=== PATIENT | female | born 1965 | race Two or more races ===

== ENCOUNTER 2018-01-16 20:08 | Emergency (ER) | payer OTHER ==
[2018-01-16 20:20] VITALS: BP 158/79
--- NOTE | 2018-01-16 21:09 | RAD ---
INDICATION: Right flank pain COMPARISON: April 06, 2011 TECHNIQUE: Noncontrast axial source images were acquired from the level hemidiaphragms to the symphysis pubis as part of CT imaging for renal stone. Lung bases: The lung bases are clear. Liver: The liver is enlarged with findings of hepatic steatosis. Noncontrast imaging shows no evidence of a hepatic mass or ductal dilatation. Gallbladder: The gallbladder is contracted and consequently not well evaluated. Spleen: The spleen is normal in size. The noncontrast CT appearance is normal. Pancreas: Noncontrast imaging shows no pancreatic mass or ductal dilitation. Adrenal glands: No masses are identified. Kidneys/Bladder: There is a 3 mm calculus in the minor pelvis in the right along the course the ureter which is likely a ureteral calculus although is very difficult to trace the ureter. Formerly, there was a calcification of similar size in lower pole of the right kidney. There are no other apparent urinary tract calcifications. There is no renal mass on noncontrast imaging The bladder is unremarkable.. Adenopathy: There is no evidence of intraperitoneal or retroperitoneal adenopathy. Evaluation is limited without oral contrast. Fluid collections: There are no free or localized fluid collections. Vessels: The aorta and iliac vessels are normal in caliber. There are no significant atherosclerotic changes. The IVC appears normal Pelvic organs: The uterus and adnexa appear normal GI tract: Evaluation of the bowel is limited without oral contrast. The stomach, small bowel, and lower GI tract appear grossly normal. There are no obstructive findings. The appendix is visualized and appears normal. Soft tissues: There is diastases of the rectus abdominis musculature. Osseous structures: There are no acute osseous findings. IMPRESSION: SUSPECT 3 MM DISTAL RIGHT URETERAL CALCULUS WITHOUT ASSOCIATED OBSTRUCTIVE FINDINGS.
--- NOTE | 2018-01-16 21:20 | UC ---
Abhishek Yanez Julia, scribed for Amish Lew MD on 01/16/18 at 2038 . Abdominal Pain Female HPI - HPI Summary HPI Summary: This patient is a 52 year old M presenting to [facility] [place] with a chief complaint of L flank pain sin 15:30 today. Pain is 6/10 in severity. Pain does not radiate. Patient reports slight nausea. Patient denies vomiting, diarrhea, constipation, fever, and chills. PMHx of kidney stones. - History of Current Complaint Chief Complaint: UCAbdominalPain Stated Complaint: SIDE PAIN Time Seen by Provider: 01/16/18 20:26 Hx Obtained From: Patient Hx Last Menstrual Period: IUD Onset/Duration: Sudden Onset, Lasting Hours Timing: Constant Pain Intensity: 6 Pain Scale Used: 0-10 Numeric Location: Other - L flank Radiates: No Associated Signs and Symptoms: Positive: Nausea. Negative: Vomiting, Diarrhea Allergies/Adverse Reactions: Allergies Allergy/AdvReac Type Severity Reaction Status Date / Time environmental Allergy sinus Uncoded 01/16/18 20:20 congestion PMH/Surg Hx/FS Hx/Imm Hx GI/ History: Kidney Stones Other History Of: Negative For: Anticoagulant Therapy - Surgical History Surgical History: Yes Surgery Procedure, Year, and Place: csxx3. d&c. lithotripsy 2000, [facility] [place]. CYSTO WITH STENT, 06/2012, [facility] [place]. carpal tunnel - Family History Known Family History: Positive: Hypertension - Social History Alcohol Use: Occasionally Substance Use Type: None Smoking Status (MU): Never Smoked Tobacco - Immunization History Most Recent Tetanus Shot: 2010 Review of Systems Constitutional: Negative Gastrointestinal: Negative - vomiting, diarrhea, constipation, Abdominal Pain - L flank pain, Nausea All Other Systems Reviewed And Are Negative: Yes Physical Exam - Summary Physical Exam Summary: VITAL SIGNS: Reviewed. GENERAL: Patient is a well-developed and nourished female who is lying comfortable in the stretcher. Patient is not in any acute respiratory distress. HEAD AND FACE: Normocephalic EYES: PERRLA, EOMI x 2. EARS: Hearing grossly intact. MOUTH: Oropharynx within normal limits. NECK: Supple, trachea is midline, no adenopathy, no JVD, no carotid bruit. CHEST: Symmetric, no tenderness at palpation LUNGS: Clear to auscultation bilaterally. No wheezing or crackles. CVS: Regular rate and rhythm, S1 and S2 present, no murmurs or gallops appreciated. ABDOMEN: Soft,. Bowel sounds are normal. No abdominal abnormal pulsations. L Costovertebral Angle tenderness EXTREMITIES: Full ROM in all major joints, no edema, no cyanosis or clubbing. NEURO: Alert and oriented x 3. No acute neurological deficits. Speech is normal and follows commands. SKIN: Dry and warm Triage Information Reviewed: Yes Vital Signs: Initial Vital Signs Temp 99.4 F 01/16/18 20:14 Pulse 84 01/16/18 20:14 Resp 17 01/16/18 20:14 BP 158/79 01/16/18 20:14 Pulse Ox 100 01/16/18 20:14 Vital Signs Reviewed: Yes Diagnostics - Radiology CT A/P Radiology Interpretation Completed By: Radiologist - SUSPECT 3 MM DISTAL RIGHT URETERAL CALCULUS WITHOUT ASSOCIATED OBSTRUCTIVE FINDINGS. Dr. Lew has reviewed this report. Abd Pain Female Course/Dx - Course Course Of Treatment: The patient presents with left flank pain. Patient reports that she has history of kidney stones. She declined any pain medications. Abdominopelvic CT shows a right 3 mm kidney stone. However the patient's pain is in the area. The urinalysis shows some red blood cells. At this point I discussed the findings and the patient and she reports her pain is improved. Therefore the patient will take ibuprofen at home and if the symptoms worsen she will go to the emergency department. Patient as he remembered the stable alert and oriented 3 - Differential Dx/Diagnosis Provider Diagnoses: Kidney stones. Flank pain Discharge - Sign-Out/Discharge Documenting (check all that apply): Discharge/Admit/Transfer - Discharge Plan Condition: Stable Disposition: HOME Patient Education Materials: Kidney Stones (ED), Flank Pain (ED) Referrals: Kate Lindsey MD [Primary Care Provider] - Additional Instructions: Increase your fluid intake Return to the if symptoms worsen - Billing Disposition and Condition Condition: STABLE Disposition: HOME The documentation as recorded by the Abhishek rhodes Julia accurately reflects the service I personally performed and the decisions made by , Amish Lew MD.
== END 2018-01-16 21:26 | disposition home or self-care (01) ==
LOC: UCEAST 20:08
DX: N20.0 Calculus of kidney (principal); Z87.442 Personal history of urinary calculi; R11.0 Nausea
CPT/HCPCS: 74176; 81003; 99211; G0463

== ENCOUNTER 2018-08-18 19:08 | Emergency (ER) | payer OTHER ==
[2018-08-18 19:33] VITALS: BP 121/61
--- NOTE | 2018-08-18 19:53 | UC ---
Minor Trauma HPI - HPI Summary HPI Summary: 5 DAYS AGO PATIENT SLIPPED ON THE ICE AND FELL BACKWARDS LANDING ON HER BACK. STATES SHE FELT WELL UNTIL 3 DAYS LATER WHEN SHE DEVELOPED INCREASING PAIN IN THE RIGHT POSTERIOR RIB CAGE. PAIN IS WORSE WITH DEEP BREATHS, COUGHING AND WITH AMBULATION. SHE HAS HAD ASSOCIATED NAUSEA AND CHILLS. FEELS LIKE SHE NEEDS TO TAKE VERY SHALLOW BREATHS. SHE DENIES ANY ANTERIOR CHEST PAIN. DENIES ANY RECENT TRAVEL OR UNUSUAL SEDENTARY BEHAVIOR. PATIENT IS OVERWEIGHT AND HAS A POSITIVE FAMILY HISTORY OF BLOOD CLOTS IN HER SISTER AND MATERNAL AUNT. PATIENT DENIES ANY PERSONAL HISTORY OF UNUSUAL CLOTTING. DENIES ANY FEVERS AT HOME HOWEVER WHILE IN THE UC DEVELOPED A TEMPERATURE OF 100.3. - History of Current Complaint Chief Complaint: UCTrauma Stated Complaint: RIB INJURY Time Seen by Provider: 08/18/18 19:41 Hx Obtained From: Patient, Family/Block Trimmer - Hx Last Menstrual Period: IUD Onset/Duration: Sudden Onset, Lasting Days, Still Present Onset Of Pain: Post Accident - 3 DAYS Severity Initially: Mild Severity Currently: Moderate Pain Intensity: 7 Pain Scale Used: 0-10 Numeric Mechanism Of Injury: Fall From A Standing Position Aggravating Factor(s): Ambulation, Coughing, Deep Breaths, Movement Alleviating Factor(s): OTC Meds - IBUPROFEN Associated Signs And Symptoms: Negative: Ecchymosis, Swelling - Allergies/Home Medications Allergies/Adverse Reactions: Allergies Allergy/AdvReac Type Severity Reaction Status Date / Time environmental Allergy sinus Uncoded 08/18/18 19:24 congestion Home Medications: Home Medications Ibuprofen 600 mg PO Q8HR PRN 08/18/18 [History Confirmed 08/18/18] PMH/Surg Hx/FS Hx/Imm Hx - Additional Past Medical History Additional PMH: PSORIATIC ARTHRITIS, TMJ, VIT D DEFICIENCY GI/ History: Kidney Stones Other History Of: Negative For: Anticoagulant Therapy - Surgical History Surgical History: None Surgery Procedure, Year, and Place: c section x 3. carpal tunnel. tubal - Family History Known Family History: Positive: Hypertension, Blood Disorder - SISTER AND MATERNAL AUNT WITH CLOTTING DISORDER - Social History Alcohol Use: Occasionally Substance Use Type: None Smoking Status (MU): Never Smoked Tobacco - Immunization History Most Recent Tetanus Shot: 2010 Review of Systems All Other Systems Reviewed And Are Negative: Yes Constitutional: Positive: Chills Skin: Positive: Negative Respiratory: Positive: Other - BREATHING SHALLOW Cardiovascular: Positive: Negative Gastrointestinal: Positive: Nausea Physical Exam Triage Information Reviewed: Yes Appearance: Well-Nourished, Pain Distress - MODERATE, Obese Vital Signs: Initial Vital Signs Temp 99.2 F 08/18/18 19:25 Pulse 80 08/18/18 19:25 Resp 18 08/18/18 19:25 BP 121/61 08/18/18 19:25 Pulse Ox 100 08/18/18 19:25 Vital Signs Reviewed: Yes Eyes: Positive: Conjunctiva Clear ENT: Positive: Hearing grossly normal Neck: Positive: Supple Respiratory Exam: Normal Cardiovascular Exam: Normal Abdomen Description: Positive: Soft Musculoskeletal: Positive: No Edema, Other: - NOT TENDER OVER RIGHT RIB CAGE. PT CATCHES BREATH AND GRIMACES WHEN ASKED TO ABDUCT RIGHT ARM. Neurological: Positive: Alert Psychological: Positive: Normal Response To Family, Age Appropriate Behavior Skin: Negative: Rashes Minor Trauma Course/Dx - Course Course Of Treatment: PT DEVELOPED WORSENING PAIN AND TEMP 100.3 WHILE IN THE . HAS A FAMILY H/O CLOTTING D/O. PT REQUIRES HIGHER LEVEL OF CARE THAN WHAT WE CAN PROVIDE IN THE . PT OFFERED TRANSPORT TO THE ED BY AMBULANCE BUT DECLINES. ADVISED THAT BY NOT TRAVELING IN A MONITORED SETTING SHE COULD BE RISKING WORSENING OF HER CONDITION THAT COULD POSE A THREAT TO HER LIFE, HEALTH AND MEDICAL SAFETY. SHE VERBALIZES UNDERSTANDING AND CONTINUES TO DECLINE AMBULANCE TRANSFER. - Differential Dx/Diagnosis Provider Diagnosis: Pleuritic pain, Fever chills Discharge - Sign-Out/Discharge Documenting (check all that apply): Patient Departure All imaging exams completed and their final reports reviewed: No Studies - Discharge Plan Condition: Stable Disposition: TRANS [facility] Patient Education Materials: Pleurisy (ED) Referrals: Kate Lindsey MD [Primary Care Provider] - If Needed Additional Instructions: WHILE YOU WERE HERE IN THE YOUR PAIN WORSENED AND YOU DEVELOPED A TEMP OF 100.3. IBUPROFEN 800MG GIVEN. GO DIRECTLY TO THE [facility] [place] ED FROM HERE FOR FURTHER EVALUATION. YOU HAVE DECLINED TRANSFER TO THE ED BY AMBULANCE. BE ADVISED THAT BY NOT TRAVELING IN A MONITORED SETTING YOU COULD BE RISKING WORSENING OF YOUR CONDITION THAT COULD POSE A THREAT TO YOUR LIFE, HEALTH AND MEDICAL SAFETY. - Billing Disposition and Condition Condition: STABLE Disposition: Trans Higher l of Care Fac
[2018-08-18] MEDS ORDERED: Ibuprofen TAB* 400 MG PO ONE (20:02)
== END 2018-08-18 20:10 | disposition short-term general hospital (02) ==
LOC: UCEAST 19:08
DX: R07.81 Pleurodynia (principal); R50.9 Fever, unspecified; Z91.09 Other allergy status, other than to drugs and biological substances; W00.0XXA Fall on same level due to ice and snow, initial encounter; Y92.9 Unspecified place or not applicable
CPT/HCPCS: 99212; A9270-GY; G0463

== ENCOUNTER 2018-08-18 20:26 | Emergency (ER) | payer OTHER ==
--- NOTE | 2018-08-18 21:05 | ED ---
Back Pain - HPI Summary HPI Summary: This patient is a 53 year old F presenting to [facility] upon referral from [facility] care accompanied by her with a chief complaint of back pain since 2 days ago. Patient reports that she fell on ice and hit her back 5 days ago. The patient rates the pain 8/10 in severity. Symptoms aggravated by ambulating and arm movement. Symptoms alleviated by nothing. Patient reports nausea, right side pain, chest tightness, pain in her chills, cough, fatigue, and myalgias. Patient denies bladder incontinence or bowel incontinence. - History of Current Complaint Chief Complaint: EDFever Stated Complaint: FEVER Time Seen by Provider: 08/18/18 20:54 Hx Obtained From: Patient Hx Last Menstrual Period: IUD Onset/Duration: Gradual Onset, Lasting Days - 2 days, Still Present Onset/Duration: Started Days Ago - 2 days, Still Present Timing: Constant Back Pain Location: Radiates To - right side Severity Initially: Moderate Severity Currently: Moderate Pain Intensity: 8 Pain Scale Used: 0-10 Numeric Aggravating Symptom(s): Movement - arm movement, Walking Alleviating Symptom(s): Nothing Associated Signs And Symptoms: Positive: Other - chills, nausea, chest tightness , fatigue, myalgias. Negative: Bladder Incontinence, Bowel Incontinence - Allergies/Home Medications Allergies/Adverse Reactions: Allergies Allergy/AdvReac Type Severity Reaction Status Date / Time environmental Allergy sinus Uncoded 08/18/18 19:24 congestion PMH/Surg Hx/FS Hx/Imm Hx Endocrine/Hematology History: Reports: Hx Diabetes - WITH Denies: Hx Anticoagulant Therapy, Hx Thyroid Disease Cardiovascular History: Denies: Hx Hypertension, Hx Pacemaker/ICD Respiratory History: Reports: Hx Chronic Bronchitis - not in 4 or 5 years Denies: Hx Asthma, Hx Chronic Obstructive Pulmonary Disease (COPD) GI History: Reports: Hx Ulcer - LONG TIME AGO History: Reports: Hx Kidney Infection - LONG TIME AGO, Hx Kidney Stones - URETERAL STENT PLACED 06/19/12 Denies: Hx Renal Disease Musculoskeletal History: Reports: Hx Arthritis - lyme disease Denies: Hx Osteoporosis Comment Only: Other Musculoskeletal History - CARPAL TUNNEL SURGERY X 2 Sensory History: Denies: Hx Contacts or Glasses, Hx Hearing Aid Opthamlomology History: Denies: Hx Contacts or Glasses Neurological History: Denies: Hx Dementia, Hx Seizures Psychiatric History: Denies: Hx Substance Abuse - Cancer History Hx Chemotherapy: No Hx Radiation Therapy: No - Surgical History Surgery Procedure, Year, and Place: c section x 3. carpal tunnel. 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 Infectious Disease History: No Infectious Disease History: Denies: Hx Hepatitis, Hx Human Immunodeficiency Virus (HIV), Traveled Outside the [place] in Last 30 Days - Family History Known Family History: Positive: Hypertension, Blood Disorder - SISTER AND MATERNAL AUNT WITH CLOTTING DISORDER - Social History Alcohol Use: Occasionally Substance Use Type: Reports: None Smoking Status (MU): Never Smoked Tobacco Review of Systems Positive: Chills, Fatigue Positive: Chest Pain - chest tightness Positive: Cough Positive: Nausea Musculoskeletal: Other - back pain, right side pain Positive: Myalgia All Other Systems Reviewed And Are Negative: Yes Physical Exam - Summary Physical Exam Summary: Appearance: Well-appearing, obese, lying in bed comfortably Skin: Warm, dry, no obvious rash Eyes: sclera anicteric, no conjunctival pallor ENT: mucous membranes moist, pharynx appears normal Neck: Supple, nontender Respiratory: Clear to auscultation, no signs of respiratory distress Cardiovascular: Normal S1, S2. No murmurs. Normal distal pulses in tibial and radial bilaterally. Abdomen: Soft, nontender, normal active bowel sounds present Musculoskeletal: Strength/ROM Intact. Mild tenderness in right posterior chest Neurological: A&Ox3, awake and alert, mentation is normal, speech is fluent and appropriate Psychiatric: affect is normal, does not appear anxious or depressed Triage Information Reviewed: Yes Vital Signs On Initial Exam: Initial Vitals Temp Pulse Resp BP Pulse Ox 99.6 F 75 16 124/73 96 08/18/18 20:38 08/18/18 20:38 08/18/18 20:38 08/18/18 20:38 08/18/18 20:38 Vital Signs Reviewed: Yes Diagnostics - Vital Signs Vital Signs Temp Pulse Resp BP Pulse Ox 08/18/18 20:38 99.6 F 75 16 124/73 96 - Laboratory Result Diagrams: 08/18/18 21:10 08/18/18 21:10 Lab Statement: Any lab studies that have been ordered have been reviewed, and results considered in the medical decision making process. - Radiology CXR Radiology Interpretation Completed By: ED Physician Summary of Radiographic Findings: no acute process. Back Pain Course/Dx - Course Course Of Treatment: This patient is a 53 year old F presenting to [facility] upon referral from [facility] care accompanied by her with a chief complaint of back pain since 2 days ago. Patient reports that she fell on ice and hit her back 5 days ago. The patient rates the pain 8/10 in severity. Symptoms aggravated by ambulating and arm movement. Symptoms alleviated by nothing. Patient reports nausea, right side pain, chest tightness, pain in her chills, cough, fatigue, and myalgias. Patient denies bladder incontinence or bowel incontinence. CXR reveals no acute process. Test results with no significant abnormalities. In the ED course the patient was given Rocephin. Patient will be discharged with follow up from PCP. The patient is agreeable with this plan. - Diagnoses Provider Diagnoses: Pyelonephritis Discharge - Sign-Out/Discharge Documenting (check all that apply): Patient Departure - Discharge Plan Condition: Good Disposition: HOME Prescriptions: Amoxicillin/Clavulanate TAB* [Augmentin TAB 875*] 875 mg PO BID #20 tab oxyCODONE/Acetamin 5/325 MG* [Percocet 5/325 TAB*] 2 tab PO Q4H PRN #15 tab MDD 6 tabs PRN Reason: Pain Patient Education Materials: Kidney Infection (ED) Forms: *Work Release Referrals: Kate Lindsey MD [Primary Care Provider] - - Billing Disposition and Condition Condition: GOOD Disposition: Home - Attestation Statements Document Initiated by Lobito: Yes Documenting Scribe: Rachel Santizo Provider For Whom Lobito is Documenting (Include Credential): Johan Curtis MD Scribcathy Attestation: Rachel Yanez scribed for Johan Curtis MD on 08/19/18 at 0215. Scribe Documentation Reviewed: Yes Provider Attestation: The documentation as recorded by the Rachel rhodes accurately reflects the service I personally performed and the decisions made by me, Johan Curtis MD Status of Scribcathy Document: Viewed
[2018-08-18 21:25] LABS: ABS Basophils 0.1 10^3/ul (0-0.2); ABS Eosinophils 0.2 10^3/ul (0-0.6); ABS Lymphocytes 2.6 10^3/ul (1.0-4.8); ABS Monocytes 0.7 10^3/ul (0-0.8); ABS Neutrophils 7.9 10^3/ul (1.5-7.7); ABS Nucleated RBC 0 10^3/ul; Eosinophil % 1.4 %; Hematocrit 43 % (35-47); Hemoglobin 14.7 g/dl (12.0-16.0); Lymphocyte % 22.7 %; Mean Corpuscular HGB Conc 34 g/dl (31-36); Mean Corpuscular Hemoglobin 31 pg (27-31); Mean Corpuscular Volume 90 fL (80-97); Mean Platelet Volume 7.8 fL (7.4-10.4); Nucleated Red Blood Cells % 0; Platelet Count 364 10^3/ul (150-450); Red Blood Count 4.82 10^6/ul (4.00-5.40); Red Cell Distribution Width 13 % (10.5-15); White Blood Count 11.6 10^3/ul (3.5-10.8)
[2018-08-18 21:34] LABS: EGFR Non-African American 88.3 (>60)
[2018-08-18 21:50] LABS: Urine Appearance Cloudy; Urine Blood Negative (Negative); Urine Color Yellow; Urine Ketones Negative (Negative); Urine Protein 1+(30 mg/dL) (Negative); Urine Red Blood Cell 1+(3-5/hpf) (Absent); Urine Specific Gravity 1.025 (1.010-1.030); Urine Urobilinogen Negative (Negative); Urine White Blood Cell 2+(11-20/hpf) (Absent)
[2018-08-18] MEDS ORDERED: cefTRIAXone VIAL(*) 1,000 MG VIAL IM ONE (23:00)
[2018-08-18] MEDS ORDERED: cefTRIAXone(*) 1 GM in NS 0.9% 50 ML* 50 ML IVPB ONE (23:04)
[2018-08-18 23:10] VITALS: BP 103/63
[2018-08-18] MEDS ORDERED: Lidocaine 1%* 5 ML VIAL ONE (23:14)
[2018-08-18] MEDS ORDERED: Lidocaine 1%* 5 ML VIAL INJ ONE (23:21)
== END 2018-08-18 23:17 | disposition home or self-care (01) ==
LOC: ED 20:26
DX: N12 Tubulo-interstitial nephritis, not specified as acute or chronic (principal); R07.9 Chest pain, unspecified; R53.83 Other fatigue; R05 Cough; R11.0 Nausea; M54.9 Dorsalgia, unspecified
CPT/HCPCS: 36415; 71046; 80053; 81003; 81015; 85025; 85379; 87086; 99284; J0696